=== PATIENT | female | born 1990 | race Hispanic/Latino ===

== ENCOUNTER 2018-01-29 10:17 | Day surgery (SDC) | payer MEDICAID ==
[~2018-01-29] VITALS: Ht 162.6 cm; Wt 98.2 kg
[2018-01-29] VITALS (19 sets, daily range): BP systolic 120–156; BP diastolic 74–93
[~2018-01-29 10:17] MED LIST: SODIUM CHLORIDE 0.9% 1000ML 1,000 ML IV ONE
[2018-01-29] MEDS ORDERED: ROCURONIUM 10MG/1ML SYR 10 MG/ML ML ONE (12:42)
[2018-01-29] MEDS ORDERED: MIDAZOLAM HCL 1 MG/ML 2ML VIAL ONE (12:42)
[2018-01-29] MEDS ORDERED: FENTANYL CITRATE PF 50 MCG/1 ML 5ML AMP IV ONE (12:42)
[2018-01-29] MEDS ORDERED: PROPOFOL 1000 MG/100 ML 100 ML IV ONE (12:51)
[2018-01-29] MEDS ORDERED: IOHEXOL-350 50ML VIAL IV ONE (13:09)
[2018-01-29] MEDS ORDERED: INDOMETHACIN 50 MG SUPP.RECT RC SCH (14:00)
[2018-01-29] MEDS ORDERED: ONDANSETRON HCL MDV 20ML 2 MG/ML VIAL ONE (14:28)
[2018-01-29] MEDS ORDERED: ONDANSETRON HCL 4 MG/2 ML VIAL ONE (14:28)
== END 2018-01-29 15:28 | disposition home or self-care (01) ==
LOC: DAH 10:17
PROVIDERS: ATTEND Internal Medicine
DX: K80.50 Calculus of bile duct without cholangitis or cholecystitis without obstruction (principal); K26.9 Duodenal ulcer, unspecified as acute or chronic, without hemorrhage or perforation; Z98.890 Other specified postprocedural states; Z95.5 Presence of coronary angioplasty implant and graft; Z68.37 Body mass index [BMI] 37.0-37.9, adult; Z79.899 Other long term (current) drug therapy; F17.200 Nicotine dependence, unspecified, uncomplicated
CPT/HCPCS: 36415; 43261; 43264; 43273; 43275; 74330; 84703; 88108; 88305 ×2; A4606; C1769; C1773; J2250; J2405; J2704; J3010; J7030; Q9967; 43262